=== PATIENT | male | born 1935 | race Caucasian/White ===

== ENCOUNTER → 2020-12-13 | Outpatient (CLI) | payer MEDICARE, OTHER ==
[~2020-12-13] MED LIST: ALBU8.5H8 IH; ASCO500T8 PO; CALC1CAP8 PO; FLUT1DIS3 INH; GLUC1TAB55 PO; LEVO112T2 PO; LISI-167 PO; MONT10TA6 PO
== END | disposition home or self-care (01) ==
LOC: STAR 12:19
PROVIDERS: ATTEND Internal Medicine Cardiovascular Disease
DX: Z20.828 Contact with and (suspected) exposure to other viral communicable diseases (principal)
CPT/HCPCS: 87635

== ENCOUNTER → 2021-06-24 | Outpatient (CLI) | payer MEDICARE, OTHER ==
[~2021-06-24] MED LIST changes: +ASPI81TA45 PO; +B CO1TAB14 PO; +CALC1TAB PO; +CALC200T3 PO; +CHOL10003 PO; +DOCU250C9 PO; +FLUT1DIS5 IH; +FLUT9.9S IH; +Iron PO; +L.AC1CAP6 PO; +LEVO137T2 PO; +PANT40TA6 PO; +PRAV40TA2 PO; +WELLNESS FORMULA PO; +Zinc PO
== END | disposition home or self-care (01) ==
LOC: CFH 12:06
PROVIDERS: ATTEND Internal Medicine Cardiovascular Disease
DX: I25.89 Other forms of chronic ischemic heart disease (principal); I25.10 Atherosclerotic heart disease of native coronary artery without angina pectoris; I35.0 Nonrheumatic aortic (valve) stenosis
CPT/HCPCS: 78452; 93017; A9502